=== PATIENT | male | born 1980 | race Two or more races ===

== ENCOUNTER 2020-01-13 01:38 | Emergency (ER) | payer MEDICAID ==
[~2020-01-13] VITALS: Ht 175.3 cm; Wt 81.6 kg
[~2020-01-13 01:38] MED LIST: ALPR0.5T; CODE30TA
[2020-01-13 02:16] LABS: Basophils # (auto) 0 10 ^3/uL (0-0.2); Basophils % (auto) 0.4 % (0.0-2.0); Eosinophils # (auto) 0.1 10 ^3/uL (0-0.8); Eosinophils % (auto) 1.8 % (0.0-7.0); Hematocrit 44.9 % (41.0-53.0); Hemoglobin 15.5 g/dL (13.5-17.5); Lymphocytes # (auto) 3.6 10 ^3/uL (0.4-5.4); Lymphocytes % (auto) 43.7 % (10.0-50.0); Mean Corpuscular Hemoglobin 31.6 pg (28.0-32.0); Mean Corpuscular Hgb Conc. 34.5 g/dL (32.0-36.0); Mean Corpuscular Volume 91.6 fL (80.0-100.0); Monocytes # (auto) 0.7 10 ^3/uL (0-1.3); Monocytes % (auto) 8.4 % (0.0-12.0); Neutrophils # (auto) 3.8 10 ^3/uL (1.6-8.6); Neutrophils % (auto) 45.7 % (37.0-80.0); Nucleated Red Blood Cells % 0.2 %; Platelet Count (auto) 233 10^3/uL (140-450); Red Cell Distribution Width 12.8 % (11.8-14.3); White Blood Cell 8.2 10^3/uL (4.4-10.8)
[2020-01-13 02:34] LABS: Urine Bacteria FEW /hpf (None Seen); Urine Blood 3+ /uL (Negative); Urine Mucus FEW (None Seen); Urine Specific Gravity 1.034 (1.001-1.035); Urine WBC 2 /hpf (0 - 3)
[2020-01-13 02:36] LABS: Albumin 3.8 g/dL (3.4-5.0); BUN/Creatinine Ratio 16.4; Calcium 8.9 mg/dL (8.5-10.1); Potassium 3.7 mmol/L (3.5-5.1)
[2020-01-13 02:38] LABS: Bilirubin, Total 0.3 mg/dL (0.2-1.0); Total Protein 7.4 g/dL (6.4-8.2)
[2020-01-13] MEDS ORDERED: MORPHINE SULFATE 4 MG/ML SYR/VIAL IV ONE (04:00)
[2020-01-13] MEDS ORDERED: ONDANSETRON HCL 4 MG/2 ML VIAL IV ONE (04:00)
[2020-01-13] MEDS ORDERED: SODIUM CHLORIDE 0.9% 1,000 ML IV ONE ×3 (04:00→07:30)
[2020-01-13] MEDS ORDERED: KETOROLAC TROMETH 30 MG/ML 1ML VIAL IV ONE (04:00)
[2020-01-13] MEDS ORDERED: TAMSULOSIN HYDROCHLORIDE 0.4 MG CAP PO ONE (07:30)
[2020-01-13] MEDS ORDERED: MANNITOL FTV 25% 12.5 GM/50 ML 50 ML IV ONE (08:30)
[2020-01-13 09:39] VITALS: BP 125/58
== END 2020-01-13 11:08 | disposition home or self-care (01) ==
LOC: ER 01:38
DX: N20.0 Calculus of kidney (principal); E86.0 Dehydration; N13.30 Unspecified hydronephrosis
CPT/HCPCS: 36415; 74176; 80053; 81001; 83690; 85025; 96361; 96365; 96375; 99285; J1885; J2150; J7030

== ENCOUNTER 2020-01-16 08:32 | Inpatient (IN) | payer MEDICAID ==
[~2020-01-16] VITALS: Ht 172.7 cm; Wt 82.5 kg
[2020-01-16 09:39] LABS: Basophils # (auto) 0 10 ^3/uL (0-0.2); Basophils % (auto) 0.3 % (0.0-2.0); Eosinophils # (auto) 0 10 ^3/uL (0-0.8); Eosinophils % (auto) 0.1 % (0.0-7.0); Hemoglobin 14.1 g/dL (13.5-17.5); Lymphocytes # (auto) 0.9 10 ^3/uL (0.4-5.4); Lymphocytes % (auto) 7.6 % (10.0-50.0); Mean Corpuscular Hemoglobin 31.4 pg (28.0-32.0); Mean Corpuscular Hgb Conc. 34.3 g/dL (32.0-36.0); Mean Corpuscular Volume 91.6 fL (80.0-100.0); Monocytes # (auto) 0.7 10 ^3/uL (0-1.3); Monocytes % (auto) 5.8 % (0.0-12.0); Neutrophils # (auto) 9.9 10 ^3/uL (1.6-8.6); Neutrophils % (auto) 86.2 % (37.0-80.0); Platelet Count (auto) 194 10^3/uL (140-450); Red Blood Cells 4.48 10^6/uL (4.5-5.90); Red Cell Distribution Width 13.3 % (11.8-14.3); White Blood Cell 11.5 10^3/uL (4.4-10.8)
[2020-01-16 10:04] LABS: Albumin 3.8 g/dL (3.4-5.0); Calcium 8.7 mg/dL (8.5-10.1); Potassium 3.5 mmol/L (3.5-5.1)
[2020-01-16 10:07] LABS: BUN/Creatinine Ratio 8.3; Bilirubin, Total 0.5 mg/dL (0.2-1.0)
[2020-01-16] MEDS ORDERED: HYDROmorphone HCL 2 MG/ML VL IV ONE (10:15)
[2020-01-16] MEDS ORDERED: PROMETHAZINE HCL 25 MG/ML 1ML IV ONE (10:15)
[2020-01-16] MEDS ORDERED: TAMSULOSIN HYDROCHLORIDE 0.4 MG CAP PO ONE (10:45)
[2020-01-16] MEDS ORDERED: SODIUM CHLORIDE 0.9% 1,000 ML IVB ONE (10:45)
[2020-01-16 13:37] LABS: Urine Bacteria NONE SEEN /hpf (None Seen); Urine Blood 2+ /uL (Negative); Urine Specific Gravity 1.017 (1.001-1.035); Urine WBC 1 /hpf (0 - 3)
[2020-01-16] MEDS ORDERED: TEMAZEPAM 15 MG CAP PO PRN (15:45)
[2020-01-16] MEDS ORDERED: MORPHINE SULF INJ 2 MG/ML SYRINGE 1ML IV PRN (15:45)
[2020-01-16] MEDS ORDERED: cefTRIAXone 1GM/50ML D5W 50 ML IV ONE (15:45)
[2020-01-16] MEDS ORDERED: PROMETHAZINE HCL 25 MG/ML 1ML IV PRN (15:45)
[2020-01-16] MEDS: SODIUM CHLORIDE 0.9% 1,000 ML IV SCH (16:02)
[2020-01-16] MEDS: traMADol HCL 50 MG TAB PO PRN ×2 (16:15→21:39)
--- NOTE | 2020-01-16 16:30 | NUR ---
RECEIVED PT RECEIVED PT FROM ER. PT STABLE AT THIS TIME. ORIENTED PT TO ROOM. BED IN LOWEST POSITION TOP TWO SIDE RAILS UP.
[2020-01-16 17:00] VITALS: BP 135/76
--- NOTE | 2020-01-16 17:20 | NUR ---
DR HORVATH CALLED DID NOT WAIT FOR RN TO ANSWER PHONE. HE GAVE ORDER TO TANK TRUCK ENGINE MECHANIC, NO ORDERS WERE PLACED. PAGE OUT TO DR HORVATH TO RECEIVE ORDERS HE DID NOT GIVE ORDERS TO RN EARLIER HE HUNG UP THE PHONE AND DID NOT WAIT FOR RN. AWAITING CALL BACK FOR ORDERS.
[2020-01-16] MEDS: ACETAMINOPHEN 500 MG TAB PO PRN (18:21)
--- NOTE | 2020-01-16 19:05 | NUR ---
Opening Shift Note Assumed care of patient, awake and alert x4. No S/S of distress/SOB or pain. Instructed on POC and to call for assist PRN, will continue to monitor for changes Q1hr and PRN.
--- NOTE | 2020-01-16 19:11 | NUR ---
CHANGE OF SHIFT REPORT GIVEN TO WIRE STOCKKEEPER RN. BED IN LOWEST POSITION TOP TWO SIDE RAILS UP, CALL LIGHT WITHIN REACH.
[2020-01-16] MEDS: FAMOTIDINE 20 MG TAB PO SCH (21:38)
[2020-01-16 22:00] VITALS: BP 126/70
[2020-01-17] MEDS: traMADol HCL 50 MG TAB PO PRN ×3 (01:45→19:42)
[2020-01-17] MEDS: SODIUM CHLORIDE 0.9% 1,000 ML IV SCH ×3 (01:49→19:47)
--- NOTE | 2020-01-17 02:10 | NUR ---
Obtained a Dilaudid 1 mg Q4 for pain. As patient request. Patient stated he gets very anxious with Morphine. Will carry out order. Addendum: 01/17/20 at 0213 by FRANKY MATIAS RN RN obtained an order from Hospitalist. Please see desmondr.
--- NOTE | 2020-01-17 04:49 | NUR ---
patient asleep right now with no signs of SOB.
[2020-01-17 05:00] VITALS: BP 145/67
[2020-01-17 05:38] LABS: Basophils # (auto) 0 10 ^3/uL (0-0.2); Basophils % (auto) 0.4 % (0.0-2.0); Eosinophils # (auto) 0.1 10 ^3/uL (0-0.8); Eosinophils % (auto) 0.7 % (0.0-7.0); Hematocrit 40.1 % (41.0-53.0); Hemoglobin 13.8 g/dL (13.5-17.5); Lymphocytes # (auto) 1.9 10 ^3/uL (0.4-5.4); Lymphocytes % (auto) 20.4 % (10.0-50.0); Mean Corpuscular Hemoglobin 31.7 pg (28.0-32.0); Mean Corpuscular Hgb Conc. 34.4 g/dL (32.0-36.0); Mean Corpuscular Volume 92.1 fL (80.0-100.0); Monocytes # (auto) 0.9 10 ^3/uL (0-1.3); Monocytes % (auto) 9.8 % (0.0-12.0); Neutrophils # (auto) 6.3 10 ^3/uL (1.6-8.6); Neutrophils % (auto) 68.7 % (37.0-80.0); Nucleated Red Blood Cells % 0.1 %; Platelet Count (auto) 201 10^3/uL (140-450); Red Blood Cells 4.35 10^6/uL (4.5-5.90); Red Cell Distribution Width 13.2 % (11.8-14.3); White Blood Cell 9.1 10^3/uL (4.4-10.8)
[2020-01-17 05:53] LABS: Potassium 4.1 mmol/L (3.5-5.1)
[2020-01-17 05:59] LABS: Albumin 3.4 g/dL (3.4-5.0); Bilirubin, Total 0.5 mg/dL (0.2-1.0); Calcium 8.4 mg/dL (8.5-10.1); Total Protein 6.6 g/dL (6.4-8.2)
--- NOTE | 2020-01-17 07:40 | NUR ---
OPENING SHIFT NOTE: PATIENT RESTING IN BED, A/O X4 AWAKE. C/O PAIN IN THE LEFT LATERAL ABDOMEN AND FLANK. RESPIRATIONS EVEN AND UNLABORED. UPDATED ON PLAN OF CARE. CALL LIGHT WITHIN REACH, PATIENT ABLE TO RETURN DEMONSTRATION URINE STRAINING. WILL CONTINUE TO MONITOR.
[2020-01-17] MEDS ORDERED: MANNITOL FTV 25% 12.5 GM/50 ML 50 ML IV ONE (08:15)
[2020-01-17] MEDS ORDERED: TAMSULOSIN HYDROCHLORIDE 0.4 MG CAP PO ONE (08:15)
--- NOTE | 2020-01-17 08:40 | NUR ---
PATIENT TAKEN DOWN TO OR. Addendum: 01/17/20 at 0840 by GINGER BARRERA RN RN -MISTAKEN ENTRY-
[2020-01-17 09:00] VITALS: BP 102/57
[2020-01-17] MEDS: FAMOTIDINE 20 MG TAB PO SCH ×2 (09:18→21:53)
[2020-01-17] MEDS: cefTRIAXone 1GM/50ML D5W 50 ML IV SCH (09:18)
[2020-01-17] MEDS: HYDROmorphone HCL 2 MG/ML VL IV PRN ×4 (09:19→23:02)
--- NOTE | 2020-01-17 11:40 | NUR ---
MD YULIET GARCIA. POSSIBLE PLANS FOR LITHOTRIPSY FRIDAY IF UNABLE TO PASS STONE.
[2020-01-17 13:00] VITALS: BP 114/53
[2020-01-17 16:58] VITALS: BP 123/86
--- NOTE | 2020-01-17 19:01 | NUR ---
CARE ENDORSED TO NOC RN.
--- NOTE | 2020-01-17 19:20 | NUR ---
OPENING SHIFT NOTE: Assumed care of patient from Maria Victoria KONG, patient is ALOCx4 currently on RA with no S/S of distress or SOB noted. Respirations even and unlabored. Patient rates pain at 8 on a scale of 0-10, will medicate as ordered. PIV to the left forearm 20 gauge that is running NS @ 125ml/hr. Patient is ambulatory without assistance and urinal bedside and patient is aware and knowledgeable to strain urine. POC is discussed with patient and all questions answered. Bed in lowest position, locked, side rails up x2. Call light within reach and patient is encouraged to call for assistance when needed. Will continue to monitor PRN.
[2020-01-17] MEDS: ACETAMINOPHEN 500 MG TAB PO PRN (21:01)
[2020-01-17 21:17] VITALS: BP 139/77
[2020-01-18] MEDS: traMADol HCL 50 MG TAB PO PRN ×3 (00:18→09:00)
[2020-01-18] MEDS: SODIUM CHLORIDE 0.9% 1,000 ML IV SCH ×3 (02:57→19:00)
[2020-01-18] MEDS: HYDROmorphone HCL 2 MG/ML VL IV PRN ×2 (03:02→08:02)
[2020-01-18 05:10] VITALS: BP 118/74
[2020-01-18 05:43] LABS: Basophils # (auto) 0 10 ^3/uL (0-0.2); Basophils % (auto) 0.2 % (0.0-2.0); Eosinophils # (auto) 0.1 10 ^3/uL (0-0.8); Eosinophils % (auto) 0.7 % (0.0-7.0); Hematocrit 38.8 % (41.0-53.0); Hemoglobin 13.4 g/dL (13.5-17.5); Lymphocytes # (auto) 1.7 10 ^3/uL (0.4-5.4); Lymphocytes % (auto) 18.1 % (10.0-50.0); Mean Corpuscular Hemoglobin 31.6 pg (28.0-32.0); Mean Corpuscular Hgb Conc. 34.6 g/dL (32.0-36.0); Mean Corpuscular Volume 91.5 fL (80.0-100.0); Monocytes # (auto) 1.1 10 ^3/uL (0-1.3); Monocytes % (auto) 11.3 % (0.0-12.0); Neutrophils # (auto) 6.7 10 ^3/uL (1.6-8.6); Neutrophils % (auto) 69.7 % (37.0-80.0); Nucleated Red Blood Cells % 0.1 %; Platelet Count (auto) 196 10^3/uL (140-450); Red Blood Cells 4.24 10^6/uL (4.5-5.90); Red Cell Distribution Width 13.2 % (11.8-14.3); White Blood Cell 9.7 10^3/uL (4.4-10.8)
[2020-01-18 06:00] LABS: Potassium 3.8 mmol/L (3.5-5.1)
[2020-01-18 06:06] LABS: BUN/Creatinine Ratio 7.5; Calcium 8.3 mg/dL (8.5-10.1)
--- NOTE | 2020-01-18 07:09 | NUR ---
CARE ENDORSED TO DAY SHIFT LUANN PRUITT.
[2020-01-18] MEDS: cefTRIAXone 1GM/50ML D5W 50 ML IV SCH (08:01)
[2020-01-18] MEDS: FAMOTIDINE 20 MG TAB PO SCH ×2 (08:01→21:42)
[2020-01-18 09:00] VITALS: BP 119/84
[2020-01-18] MEDS ORDERED: HYDROmorphone HCL 2 MG/ML VL IV PRN (11:00)
[2020-01-18] MEDS ORDERED: KETOROLAC TROMETH 30 MG/ML 1ML VIAL IV ONE (11:00)
--- NOTE | 2020-01-18 11:20 | NUR ---
MD LEIGHA GARCIA.
[2020-01-18 13:00] VITALS: BP 110/74
--- NOTE | 2020-01-18 14:38 | NUR ---
PAGE MADE TO MD HORVATH REGARDING UPDATE ON POC.
--- NOTE | 2020-01-18 16:34 | NUR ---
SECOND PAGE MADE TO MD HORVATH.
--- NOTE | 2020-01-18 16:50 | NUR ---
CALL BACK FROM MD HORVATH ORDERS RECEIVED.
[2020-01-18 17:00] VITALS: BP 120/66
--- NOTE | 2020-01-18 17:50 | NUR ---
PATIENT VERBALIZED UNDERSTANDING PLAN OF CARE: CONTINUE EXPULSIVE MEASURES, LITHOTRIPSY MACHINE NOT AVAILABLE FRIDAY, POSSIBLE SCHEDULE FOR FRIDAY MORNING IF NOT YET PASSED.
[2020-01-18] MEDS ORDERED: TAMSULOSIN HYDROCHLORIDE 0.4 MG CAP PO SCH (18:00)
[2020-01-18] MEDS: KETOROLAC TROMETH 30 MG/ML 1ML VIAL IV PRN (18:11)
--- NOTE | 2020-01-18 19:05 | NUR ---
CARE ENDORSED TO NOC RN.
--- NOTE | 2020-01-18 19:20 | NUR ---
Opening Shift Note Assumed care of patient, awake and alert. No S/S of distress/SOB or pain. Pt A&Ox4, relaxing comfortably in bed. Safety measures in place, bed rails raised x2, bed in lowest locked position, call light within reach. All needs addressed at this time. Instructed on POC and to call for assist PRN, will continue to monitor for changes Q1hr and PRN.
[2020-01-18] MEDS ORDERED: MANNITOL FTV 25% 12.5 GM/50 ML 50 ML IV ONE (20:30)
[2020-01-18 21:00] VITALS: BP 118/76
[2020-01-18] MEDS: ACETAMINOPHEN 500 MG TAB PO PRN (22:35)
[2020-01-19] MEDS: SODIUM CHLORIDE 0.9% 1,000 ML IV SCH ×2 (03:08→09:46)
[2020-01-19 05:00] VITALS: BP 91/46
[2020-01-19 06:09] LABS: Basophils # (auto) 0 10 ^3/uL (0-0.2); Basophils % (auto) 0.2 % (0.0-2.0); Eosinophils # (auto) 0.1 10 ^3/uL (0-0.8); Eosinophils % (auto) 1.5 % (0.0-7.0); Hematocrit 38.1 % (41.0-53.0); Hemoglobin 13.3 g/dL (13.5-17.5); Lymphocytes # (auto) 1.8 10 ^3/uL (0.4-5.4); Lymphocytes % (auto) 22.9 % (10.0-50.0); Mean Corpuscular Hemoglobin 31.9 pg (28.0-32.0); Mean Corpuscular Hgb Conc. 34.8 g/dL (32.0-36.0); Mean Corpuscular Volume 91.6 fL (80.0-100.0); Monocytes # (auto) 0.9 10 ^3/uL (0-1.3); Monocytes % (auto) 11.6 % (0.0-12.0); Neutrophils # (auto) 5.1 10 ^3/uL (1.6-8.6); Neutrophils % (auto) 63.8 % (37.0-80.0); Platelet Count (auto) 187 10^3/uL (140-450); Red Blood Cells 4.16 10^6/uL (4.5-5.90); White Blood Cell 7.9 10^3/uL (4.4-10.8)
[2020-01-19 06:33] LABS: Potassium 4.5 mmol/L (3.5-5.1)
[2020-01-19 06:49] LABS: Calcium 8.4 mg/dL (8.5-10.1)
--- NOTE | 2020-01-19 07:45 | NUR ---
Opening Shift Note Assumed care of patient, awake, alert, and oriented. No S/S of distress/SOB. Patient c/o pain 6/10 to left flank, will medicate per MD orders. Bed in lowest/locked position, bed rails up x2, call light within reach. Instructed on POC and to call for assist PRN. Will continue to monitor for changes Q1hr and PRN.
[2020-01-19] MEDS: cefTRIAXone 1GM/50ML D5W 50 ML IV SCH (08:19)
[2020-01-19] MEDS: FAMOTIDINE 20 MG TAB PO SCH (08:20)
[2020-01-19] MEDS: KETOROLAC TROMETH 30 MG/ML 1ML VIAL IV PRN (08:20)
[2020-01-19 09:00] VITALS: BP 114/64
--- NOTE | 2020-01-19 09:40 | NUR ---
MD KENY HORVATH'S GARMENT MANUFACTURING SUPERVISOR ESTELITA IN TO SEE PATIENT. NEW ORDERS RECEIVED/WILL CARRY OUT. WILL CONTINUE TO MONITOR
--- NOTE | 2020-01-19 10:40 | NUR ---
ROUNDS DR AHUJA AT BEDSIDE
--- NOTE | 2020-01-19 10:47 | NUR ---
Nutrition Assessment Note please see attached link for complete assessment Est Energy needs BW 82 [id number] kcals (23-25 kcal/kgBW), Est Protein needs: 68-75 gms/day (1.0-1.1 gm/kgBW). Will continue to monitor and reassess prn. Addendum: 01/19/20 at [address] Amended: Links added.
--- NOTE | 2020-01-19 12:20 | NUR ---
DR AHUJA UPDATED DR AHUJA RE:PATIENT STONE PASSING.
--- NOTE | 2020-01-19 12:20 | NUR ---
LAB SENT SPECIMEN TO LAB PER MD ORDERS
--- NOTE | 2020-01-19 12:28 | NUR ---
DR HORVATH LEFT MESSAGE ON ANSWERING SERVICE FOR DR HORVATH OR KRISTOFER CAPONE RE: PATIENT PASSING STONE. AWAITING RETURN CALL BACK
[2020-01-19 13:00] VITALS: BP 115/69
[2020-01-19 13:46] VITALS: BP 115/69
--- NOTE | 2020-01-19 14:28 | NUR ---
Discharge instructions given as ordered. Encourage to follow up with PMD as instructed. All questions and concerns addressed. Patient verbalized understanding. Home medications held in Pharmacy returned to patient. IV removed with catheter intact, pressure dressing applied. Patient taken to vehicle via wheelchair with all personal belongings, accompanied by staff. No distress noted at time of departure.
== END 2020-01-19 14:30 | disposition home or self-care (01) | DRG 465 ==
LOC: ER 08:32 → EDBD 08:32 → OVERFLOW 08:33 → CENTRAL 16:39
PROVIDERS: ADMIT Internal Medicine; ATTEND Internal Medicine
DX: N13.2 Hydronephrosis with renal and ureteral calculous obstruction (principal); K57.30 Diverticulosis of large intestine without perforation or abscess without bleeding; K40.90 Unilateral inguinal hernia, without obstruction or gangrene, not specified as recurrent; N17.9 Acute kidney failure, unspecified; A60.00 Herpesviral infection of urogenital system, unspecified; Z87.442 Personal history of urinary calculi; D72.829 Elevated white blood cell count, unspecified; Z88.1 Allergy status to other antibiotic agents; K44.9 Diaphragmatic hernia without obstruction or gangrene; R16.0 Hepatomegaly, not elsewhere classified; E66.3 Overweight; R79.89 Other specified abnormal findings of blood chemistry; Z68.27 Body mass index [BMI] 27.0-27.9, adult
CPT/HCPCS: 36415; 74176; 76775; 80048; 80053; 81001; 82360; 85025; 87086; G0378; J0696; J1885

== ENCOUNTER 2023-01-20 09:05 | Emergency (ER) | payer MEDICAID ==
[~2023-01-20] VITALS: Ht 175.3 cm; Wt 84.0 kg
[2023-01-20 09:40] LABS: Basophils # (auto) 0 10 ^3/uL (0-0.2); Basophils % (auto) 0.3 % (0.0-2.0); Eosinophils # (auto) 0.1 10 ^3/uL (0-0.8); Eosinophils % (auto) 1.6 % (0.0-7.0); Hematocrit 44.6 % (41.0-53.0); Hemoglobin 15.6 g/dL (13.5-17.5); Lymphocytes # (auto) 2.5 10 ^3/uL (0.4-5.4); Lymphocytes % (auto) 32.7 % (10.0-50.0); Mean Corpuscular Hemoglobin 32.5 pg (28.0-32.0); Monocytes # (auto) 0.6 10 ^3/uL (0-1.3); Monocytes % (auto) 7.3 % (0.0-12.0); Neutrophils # (auto) 4.5 10 ^3/uL (1.6-8.6); Neutrophils % (auto) 58.1 % (37.0-80.0); Nucleated Red Blood Cells % 0.1 %; Red Cell Distribution Width 13.4 % (11.8-14.3); White Blood Cell 7.7 10^3/uL (4.4-10.8)
[2023-01-20 10:01] LABS: Alanine Aminotransferase 20 U/L (7-40); Albumin 4.3 g/dL (3.2-4.8); Alkaline Phosphatase 87 U/L (46-116); Anion Gap 8 (5-15); Aspartate Aminotransferase 20 U/L (13-40); BUN/Creatinine Ratio 7.3 (10.0-20.0); Bilirubin, Total 0.6 mg/dL (0.2-1.0); Blood Urea Nitrogen 8 mg/dL (9-23); Carbon Dioxide 26 mmol/L (20-30); Chloride 109 mmol/L (98-107); Glucose 92 mg/dL (74-106); Potassium 4.1 mmol/L (3.5-5.1); Sodium 143 mmol/L (136-145)
[2023-01-20 11:45] LABS: Urine Bacteria NONE SEEN /hpf (None Seen); Urine Blood Negative /uL (Negative); Urine Clarity Clear (Clear); Urine Color Yellow (Yellow); Urine Mucus FEW (None Seen); Urine Protein, UAD TRACE (Negative); Urine Urobilinogen Normal (Negative); Urine WBC <1 /hpf (0 - 3)
[2023-01-20 12:26] LABS: Lipase 40 U/L (12-53)
[2023-01-20] MEDS ORDERED: ONDANSETRON ODT 4 MG TAB PO ONE (12:30)
[2023-01-20] MEDS ORDERED: DICYCLOMINE HCL (10MG/ML) 2 ML AMPULE IM ONE (12:30)
[2023-01-20 12:50] VITALS: BP 113/63; PULSE 69; RESP 17; TEMP 97.9; O2SAT 98
[2023-01-20 13:11] LABS: Hepatitis B Surface Antigen Negative (Negative)
[2023-01-20 13:32] LABS: Hepatitis A Ab IgM Negative; Hepatitis B Core IgM Negative
[2023-01-20 13:33] LABS: Hepatitis C Antibody Negative (Negative)
[2023-01-20] MEDS ORDERED: METR375C PO (14:16)
[2023-01-20] MEDS ORDERED: CIPR-173 PO (14:16)
== END 2023-01-20 14:35 | disposition home or self-care (01) ==
LOC: ER 09:05
DX: K92.1 Melena (principal); R10.84 Generalized abdominal pain; Z87.442 Personal history of urinary calculi; Z88.6 Allergy status to analgesic agent
CPT/HCPCS: 36415; 74176; 80053; 80074; 81001; 83690; 85025; 96372; 99285; J0500; Q0162